=== PATIENT | female | born 1950 | race Caucasian/White ===

== ENCOUNTER → 2016-10-04 | Outpatient (CLI) | payer OTHER ==
--- NOTE | 2016-10-04 10:01 | BD ---
EXAMINATION TYPE: MG DEXA axial skeleton. DATE OF EXAM: 10/04/2016 9:17 AM COMPARISON: Prior DEXA bone scan September 04, 2014 CLINICAL HISTORY: Postmenopausal female with known osteopenia per order Height: 62.5 Weight: 141.2 FRAX RISK QUESTIONS: Alcohol (3 or more units per day): NO Family History (Parent hip fracture): NO Glucocorticoids (More than 3mos): NO (Ex: prednisone, prednisolone, methylprednisolone, dexamethasone, and hydrocortisone). History of Fracture in Adulthood: NO Secondary Osteoporosis: 1. Type 1 Diabetes: NO 2. Hyperthyroidism: NO 3. Menopause before 45: NO 4. Malnutrition: NO 5. Chronic liver disease: NO Rheumatoid Arthritis: NO Current Tobacco Use: NO RISK FACTORS HISTORY OF: Hip Fracture (Right/Left): NO Spine Fracture: NO History of Wrist Fracture: NO Surgery to Spine/Hip(right/left)/Wrist (right/left): NO Family History of Osteoporosis: YES Active: YES Diet low in dairy products/other sources of calcium: NO Postmenopausal woman: HYSTERECTOMY AGE 57 Lost more than 2 inches in height since high school: YES Frequent falls: NO Adrenal Insufficiency: NO MEDICATIONS: TOPOROL. LIPITOR Additional History: EXAM MEASUREMENTS: Bone mineral densitometry was performed using the [employer]ken[employer] System. Bone mineral density as measured about the Lumbar spine is: ----- L1-L4(G/cm2): 1.002 T Score Values are as follows: ----- L2: -1.8 ----- L3: -1.7 ----- L4: -0.4 ----- L1-L4: -1.5 Bone mineral density has: INCREASED 8.8 % since study of: 09.04.2014 Bone mineral density about the R hip (g/cm2): 0.790 Bone mineral density about the L hip (g/cm2): 0.759 T Score values are as follows: -----R Neck: -1.8 -----L Neck: -2.0 -----R Intertrochanter: -1.0 -----L Intertrochanter: -1.1 Bone mineral density has: INCREASED 0.8 % since study of: 09.04.2014 IMPRESSION: Osteopenia (T Score between -2.5 and -1 as noted by T score values remains present and low back and b oth hips. Bone density fairly stable from most recent prior. There is slightly increased risk of frac ture and the patient may be considered for treatment. Re-Screen 1-2 years. NOTE: T-SCORE=SD OF THE YOUNG ADULT MEAN.
== END | disposition home or self-care (01) ==
LOC: RADBDWWP 08:49
PROVIDERS: ATTEND Obstetrics & Gynecology
DX: M85.852 Other specified disorders of bone density and structure, left thigh (principal); M85.851 Other specified disorders of bone density and structure, right thigh; M85.88 Other specified disorders of bone density and structure, other site
CPT/HCPCS: 77080

== ENCOUNTER 2017-10-18 08:42 | Day surgery (SDC) | payer MEDICARE, OTHER ==
[2017-10-16 11:37] VITALS: BMI 24.7
[~2017-10-18 08:42] MED LIST: LACTATED RINGERS 1,000 ML IV SCH; LIDOCAINE 1% 20 ML VIAL (10MG/ML) FOR IV START INTRADERMA PRN
[2017-10-18 09:27] VITALS: RESP 16; TEMP 97.4
[2017-10-18] MEDS ORDERED: fentaNYL (PF) 50 MCG/ML 2 ML AMP ONE (09:57)
[2017-10-18] MEDS ORDERED: MIDAZOLAM 2 MG/2 ML VIAL ONE (09:57)
[2017-10-18] MEDS ORDERED: PROPOFOL 10 MG/ML 20 ML VIAL IV ONE (09:57)
--- NOTE | 2017-10-18 10:18 | P.PCN ---
Date of Procedure: 10/18/17 Procedure(s) Performed: Brief history: Patient is a pleasant 67-year-old white female, scheduled for an elective upper endoscopy as well as colonoscopy as a part of evaluation of lungs any history of GERD and screening for colorectal neoplasia Procedure performed: Esophagogastroduodenoscopy with biopsy Colonoscopy Preoperative diagnosis: GERD Screening for colon cancer Anesthesia: MAC Procedure: After informed consent was obtained from the patient was brought into the endoscopy unit and IV sedation was administered by anesthesia under continuous monitoring. Initially upper endoscopy was done. The Olympus GF 160 video endoscope was inserted inserted into the mouth and esophagus intubated without any difficulty and was gradually advanced into the stomach and duodenum and carefully examined. The bulb and second part of the duodenum appeared normal. The scope was then withdrawn into the stomach adequately insufflated with air and upon careful examination the antrum had mild gastritis and biopsies were done from this area. The body, cardia and fundus appeared normal. The scope was then withdrawn into the esophagus. The GE junction was located at 40 cm to the incisors. It appeared regular with no erythema erosions or ulcerations. Rest of the esophagus appeared normal. Patient tolerated the procedure well. At this time the patient continued to remain sedation. Initial digital rectal examination was normal. Olympus CF 160 video colonoscope was then inserted into the rectum and gradually advanced to the cecum without any difficulty. Careful examination was performed as the scope was gradually being withdrawn. The prep was excellent. The cecum, ascending colon, transverse colon, descending colon, sigmoid colon and rectum appeared normal. Retroflexion was performed in the rectum and no lesions were noted. Patient tolerated the procedure well. Impression: 1. Upper endoscopy revealed mild antral gastritis but no evidence of esophagitis or Mayorga's esophagus 2. Colonoscopy revealed normal-appearing colon from rectum to cecum with of colitis or colorectal neoplasia Recommendations: Findings of this examination were discussed with the patient as well as her family. She was advised to follow with the biopsy results. She will continue with ranitidine 150 mg twice daily and follow antireflux measures. She can have a repeat screening colonoscopy in 10 years
[2017-10-18 11:05] VITALS: BP 109/65; PULSE 60
== END 2017-10-18 11:14 | disposition home or self-care (01) ==
LOC: ORWHC2ENDO 08:42
PROVIDERS: ATTEND Internal Medicine Gastroenterology
DX: Z12.11 Encounter for screening for malignant neoplasm of colon (principal); K29.60 Other gastritis without bleeding; K21.9 Gastro-esophageal reflux disease without esophagitis; I10 Essential (primary) hypertension; Z79.82 Long term (current) use of aspirin; Z79.899 Other long term (current) drug therapy
CPT/HCPCS: 88305; 88342; 43239; J2250; J3010; J2704; G0121

== ENCOUNTER → 2018-05-03 | Outpatient (CLI) | payer MEDICARE ==
--- NOTE | 2018-05-10 17:10 | MM ---
Reason for exam: screening (asymptomatic). Last mammogram was performed 2 years and 3 months ago. History: Patient is postmenopausal. Family history of breast cancer in mother at age 79. Excisional biopsy of the left breast. MG 3D Screening Mammo W/Cad Bilateral CC and MLO view(s) were taken. Prior study comparison: January 29, 2016, bilateral MG screening mammo w CAD. January 12, 2015, bilateral MG screening mammo w CAD. January 10, 2014, bilateral digital screening mammo w/CAD. The breast tissue is almost entirely fat. Left global asymmetry upper outer quadrant stable. ASSESSMENT: Negative, BI-RAD 1 RECOMMENDATION: Routine screening mammogram of both breasts in 1 year.
== END | disposition home or self-care (01) ==
LOC: RADMAMWWP 16:17
PROVIDERS: ATTEND Family Medicine
DX: Z12.31 Encounter for screening mammogram for malignant neoplasm of breast (principal)
CPT/HCPCS: 77063; 77067

== ENCOUNTER → 2018-10-17 | Outpatient (CLI) | payer MEDICARE ==
--- NOTE | 2018-10-18 17:00 | BD ---
EXAMINATION TYPE: Axial Bone Density DATE OF EXAM: 10/17/2018 COMPARISON: 10/04/2016 CLINICAL HISTORY: Height: 62 IN Weight: 142 LBS RISK FACTORS HISTORY OF: Family History of Osteoporosis: YES MOTHER Active: YES Diet low in dairy products/other sources of calcium: YES Postmenopausal woman: AGE 57 Lost more than 2 inches in height since high school: YES 09/26" MEDICATIONS: Additional Medications: CALCIUM, VIT D, BLOOD PRESSURE MEDS, CHOLESTEROL MEDS;ZANTAC EXAM MEASUREMENTS: Bone mineral densitometry was performed using the Clerk System. Bone mineral density as measured about the Lumbar spine is: ----- L1-L4(G/cm2): 1.080 T Score Values are as follows: ----- L2: -0.8 ----- L3: -0.3 ----- L4: -0.4 ----- L1-L4: -0.8 Bone mineral density has: Increased 9.4% since study of: 10/04/2016 Bone mineral density about the R hip (g/cm2): 0.797 Bone mineral density about the L hip (g/cm2): 0.766 T Score values are as follows: -----R Neck: -1.7 -----L Neck: -2.0 -----R Total: -1.2 -----L Total: -1.3 Bone mineral density has: Increased 1.6% since study of: 10/04/2016 IMPRESSION: Osteopenia (T Score between -2.5 and -1). There is slightly increased risk of fracture and the patient may be considered for treatment. Re-Screen 2-5 years. NOTE: T-SCORE=SD OF THE YOUNG ADULT MEAN.
== END | disposition home or self-care (01) ==
LOC: RADBDWWP 16:22
PROVIDERS: ATTEND Family Medicine
DX: M85.80 Other specified disorders of bone density and structure, unspecified site (principal); N95.1 Menopausal and female climacteric states
CPT/HCPCS: 77080

== ENCOUNTER → 2019-04-02 | Outpatient (CLI) | payer MEDICARE ==
--- NOTE | 2019-04-03 07:52 | XR ---
EXAMINATION TYPE: XR Hip Complete RT DATE OF EXAM: 04/02/2019 COMPARISON: NONE HISTORY: Pain and TECHNIQUE: 2 views submitted FINDINGS: There is no evidence of erosive change or acute fracture. There is hypertrophic spurring involving the greater trochanter. Mild concentric narrowing the joint space. IMPRESSION: 1. No evidence of acute fracture or dislocation. 2. Spurring along the greater trochanter can be associated with trochanteric bursitis correlate with MRI as clinically warranted.
== END | disposition home or self-care (01) ==
LOC: RADXRMAIN 16:28
PROVIDERS: ATTEND Family Medicine
DX: M76.891 Other specified enthesopathies of right lower limb, excluding foot (principal)
CPT/HCPCS: 73502

== ENCOUNTER → 2019-07-08 | Outpatient (CLI) | payer MEDICARE ==
--- NOTE | 2019-07-09 14:44 | MM ---
Reason for exam: screening (asymptomatic). Last mammogram was performed 1 year and 2 months ago. History: Patient is postmenopausal. Family history of breast cancer in mother at age 79. Excisional biopsy of the left breast. Physical Findings: A clinical breast exam by your physician is recommended on an annual basis and results should be correlated with mammographic findings. MG 3D Screening Mammo W/Cad Bilateral CC and MLO view(s) were taken. Prior study comparison: May 03, 2018, bilateral MG 3d screening mammo w/cad. January 29, 2016, bilateral MG screening mammo w CAD. The breast tissue is almost entirely fat. No significant changes when compared with prior studies. ASSESSMENT: Benign, BI-RAD 2 RECOMMENDATION: Routine screening mammogram of both breasts in 1 year.
== END | disposition home or self-care (01) ==
LOC: RADMAMWWP 09:17
PROVIDERS: ATTEND Obstetrics & Gynecology
DX: Z12.31 Encounter for screening mammogram for malignant neoplasm of breast (principal)
CPT/HCPCS: 77063; 77067

== ENCOUNTER → 2019-10-18 | Outpatient (CLI) | payer MEDICARE ==
--- NOTE | 2019-10-18 12:17 | US ---
EXAMINATION TYPE: US venous doppler duplex LE DATE OF EXAM: 10/18/2019 12:06 PM COMPARISON: NONE CLINICAL HISTORY: R79.1 Abnormal coagulation profile. Elevated D dimer; recent chest pains per patien t; patient denies swelling SIDE PERFORMED: Bilateral TECHNIQUE: The lower extremity deep venous system is examined utilizing real time linear array sonog shad with graded compression, doppler sonography and color-flow sonography. VESSELS IMAGED: Common Femoral Vein Deep Femoral Vein Greater Saphenous Vein * Femoral Vein Popliteal Vein Small Saphenous Vein * Proximal Calf Veins (* superficial vessels) Right Leg: Negative for DVT Left Leg: Negative for DVT IMPRESSION: 1. Bilateral lower extremity ultrasound negative for deep venous thrombosis.
--- NOTE | 2019-10-18 13:04 | CT ---
CT CHEST FOR PULMONARY EMBOLISM. EXAMINATION TYPE: CT angio chest DATE OF EXAM: 10/18/2019 INDICATION: SOB, chest pain, elevated d-dimer CT DLP: 295.3 mGycm, Automated exposure control for dose reduction was used. CONTRAST: Patient injected with 60 mL of Isovue 370. COMPARISON: None TECHNIQUE: CT of the chest is performed on a spiral scan at 2 mm thick sections. Study is performed with intravenous contrast timed for evaluation for pulmonary embolism. This will limit additional po rtions of the evaluation. 3-D MIP images reconstructed by the technologist are reviewed on the compu ter in the coronal and sagittal planes. FINDINGS: No persistent filling defects are evident to suggest an acute pulmonary embolism. No mediastinal or hilar adenopathy enlarged by CT criteria is evident. The ascending aorta diameter at the level of the main pulmonary artery is 4.1 cm. The main pulmonary artery diameter at the bifur cation is 2.5 cm. Lung windows are clear. Limited CT section through the upper abdomen. There is calcification within the right superior renal cortex. Punctate calcification is in the left renal cortex. 0Small hiatal hernia may be present. IMPRESSIONS: 1. No acute pulmonary embolism. 2. Ascending thoracic aortic aneurysm.
== END | disposition home or self-care (01) ==
LOC: RADCTMAIN 11:16
PROVIDERS: ATTEND Family Medicine
DX: I71.2 Thoracic aortic aneurysm, without rupture (principal); R79.1 Abnormal coagulation profile
CPT/HCPCS: 82565; 84520; 93970; 71275; 36415; Q9967

== ENCOUNTER → 2019-10-30 | Outpatient (CLI) | payer MEDICARE ==
--- NOTE | 2019-10-30 12:03 | ECHOF ---
Referral Reason:R07.9 Chest pain R06.02 Shortness of breath MEASUREMENTS -------- HEIGHT: 157.5 cm WEIGHT: 64.4 kg BP: 147/76 RVIDd: 3.5 cm (< 3.3) IVSd: 1.1 cm (0.6 - 1.1) LVIDd: 3.5 cm (3.9 - 5.3) LVPWd: 1.1 cm (0.6 - 1.1) IVSs: 1.6 cm LVIDs: 1.7 cm LVPWs: 1.7 cm LAESV Index (A-L): 27.42 ml/m Ao Diam: 3.1 cm (2.0 - 3.7) AV Cusp: 2.0 cm (1.5 - 2.6) LA Diam: 3.0 cm (2.7 - 3.8) MV EXCURSION: 11.106 mm (> 18.000) MV EF SLOPE: 36 mm/s (70 - 150) EPSS: 0.2 cm MV E Sajan: 0.94 m/s MV DecT: 193 ms MV A Sajan: 0.99 m/s MV E/A Ratio: 0.95 RAP: 5.00 mmHg RVSP: 29.68 mmHg FINDINGS -------- Sinus rhythm. This was a technically adequate study. The left ventricular size is normal. There is borderline concentric left ventricular hypertrophy. Overall left ventricular systolic function is normal with, an EF between 55 - 60 %. The diastolic filling pattern is normal for the age of the patient 13.88. The right ventricle is mildly enlarged. Normal LA size by volume 22+/-6 ml/m2. The right atrium is mildly enlarged. Interatrial and interventricular septum intact. The aortic valve is trileaflet and appears structurally normal. There is mild aortic valve sclerosi s. There is no evidence of aortic regurgitation. There is no evidence of aortic stenosis. Mild mitral regurgitation is present. Mild tricuspid regurgitation present. There is no evidence of pulmonary hypertension. The right v entricular systolic pressure, as measured by Doppler, is 29.68mmHg. There is no pulmonic regurgitation present. The aortic root size is normal. IVC Not well visulized. There is no pericardial effusion. CONCLUSIONS -------- 1. Sinus rhythm. 2. This was a technically adequate study. 3. The left ventricular size is normal. 4. There is borderline concentric left ventricular hypertrophy. 5. Overall left ventricular systolic function is normal with, an EF between 55 - 60 %. 6. The diastolic filling pattern is normal for the age of the patient 13.88 7. The right ventricle is mildly enlarged. 8. Normal LA size by volume 22+/-6 ml/m2. 9. The right atrium is mildly enlarged. 10. Interatrial and interventricular septum intact. 11. The aortic valve is trileaflet and appears structurally normal. 12. There is mild aortic valve sclerosis. 13. There is no evidence of aortic regurgitation. 14. There is no evidence of aortic stenosis. 15. Mild mitral regurgitation is present. 16. Mild tricuspid regurgitation present. 17. There is no evidence of pulmonary hypertension. 18. The right ventricular systolic pressure, as measured by Doppler, is 29.68mmHg. 19. There is no pulmonic regurgitation present. 20. The aortic root size is normal. 21. IVC Not well visulized. 22. There is no pericardial effusion. CHANCERY CLERK: Tram Bose RDCS
--- NOTE | 2019-10-30 13:10 | ECHOS ---
STRESS ECHOCARDIOGRAM DATE OF SERVICE: 10/30/2019 INDICATIONS: Chest pain. MEDICATIONS: BASELINE HEART RATE: 66 BASELINE BLOOD PRESSURE: 147/76 MAXIMUM HEART RATE: 133 MAXIMUM BLOOD PRESSURE: 175/74 85% MPHR: 130 100% MPHR: 153 METS: 11.3 MAXIMUM STAGE REACHED: IV TOTAL EXERCISE TIME: 9 minutes 45 seconds CLINICAL INFORMATION: Baseline EKG revealed normal sinus rhythm without significant ST-T changes. Patient walked for 9 minutes 45 seconds achieved a maximal heart rate of 133 beats per minute which is 85% of predicted maximal. No angina. Rare PVCs. By EKG criteria, this is a negative stress test. However, right after the peak heart rate the rate dropped very quickly. She did not have any anginal symptoms. Technically a negative stress test by EKG criteria with borderline and equivocal EKG changes and no angina. Baseline echo images revealed normal wall motion and wall thickening of all segments. At peak exercise by the time images were obtained, heart rate was lower than 85%, but there is no evidence suggestive of ischemia. There is good augmentation of wall motion and wall thickening of all segments suggesting no evidence of stress-induced ischemia on this study. FINAL IMPRESSION: 1. Good exercise capacity. Negative stress test by EKG criteria with a quick drop in the heart rate after exercise. 2. Normal stress echocardiogram. MMODL / IJN: [id number] /
== END | disposition home or self-care (01) ==
LOC: RADNMMAIN 08:56
PROVIDERS: ATTEND Family Medicine
DX: I08.1 Rheumatic disorders of both mitral and tricuspid valves (principal)
CPT/HCPCS: 93306; 93351

== ENCOUNTER → 2020-04-22 | Outpatient (CLI) | payer MEDICARE ==
--- NOTE | 2020-04-22 18:06 | CT ---
EXAMINATION TYPE: CT angio chest DATE OF EXAM: 04/22/2020 5:26 PM COMPARISON: CTA chest 10/18/2019 HISTORY: f/u aneurysm CT DLP: 227.7 mGycm Automated exposure control for dose reduction was used. CONTRAST: CTA scan of the thorax is performed with IV Contrast, patient injected with 100 mL of Isovue 370, tho racic aortic aneurysm protocol. 3D reconstructed images are created on an independent workstation an d reviewed.. FINDINGS: LUNGS: The lungs are grossly clear, there is no concerning parenchymal mass or nodule identified. Mil d dependent atelectasis. There is no pleural effusion or pneumothorax seen. The tracheobronchial tr ee is patent. MEDIASTINUM: There is 4.0 cm ascending thoracic aortic aneurysm. No evidence of dissection. There is satisfactory enhancement of the pulmonary artery and its segmental, there is no CT evidence for centr al or segmental pulmonary embolism. There are no greater than 1 cm hilar or mediastinal lymph nodes. Cardiac size normal. No pericardial effusion is seen. OTHER: Renal cortical scarring and right renal cortical calcification seen. No adrenal nodule. Redem onstrated too small to characterize hypodense lesion of the right liver (4:44). Degenerative changes of the visualized spine. IMPRESSION: UNCHANGED 4.0 CM ASCENDING THORACIC AORTIC ANEURYSM
== END | disposition home or self-care (01) ==
LOC: RADCTMAIN 15:45
PROVIDERS: ATTEND Family Medicine
DX: I71.2 Thoracic aortic aneurysm, without rupture (principal); Z13.89 Encounter for screening for other disorder
CPT/HCPCS: 82565; 84520; 71275; 36415; Q9967

== ENCOUNTER → 2020-07-10 | Outpatient (CLI) | payer MEDICARE ==
--- NOTE | 2020-07-14 11:54 | MM ---
Reason for exam: screening (asymptomatic). Last mammogram was performed 1 year ago. History: Patient is postmenopausal. Family history of breast cancer in mother at age 79. Excisional biopsy of the left breast. Physical Findings: A clinical breast exam by your physician is recommended on an annual basis and results should be correlated with mammographic findings. MG 3D Screening Mammo W/Cad Bilateral CC and MLO view(s) were taken. Prior study comparison: July 08, 2019, bilateral MG 3d screening mammo w/cad. May 03, 2018, bilateral MG 3d screening mammo w/cad. There are scattered fibroglandular densities. Finding #1: There is a oval circumscribed lobulated mass in the left breast. Finding #2: There are typically benign calcifications in both breasts. No significant changes in finding since July 08, 2019 and May 03, 2018. ASSESSMENT: Benign, BI-RAD 2 RECOMMENDATION: Routine screening mammogram of both breasts in 1 year.
== END | disposition home or self-care (01) ==
LOC: RADMAMWWP 15:56
PROVIDERS: ATTEND Family Medicine
DX: Z12.31 Encounter for screening mammogram for malignant neoplasm of breast (principal); Z80.3 Family history of malignant neoplasm of breast
CPT/HCPCS: 77063; 77067

== ENCOUNTER → 2020-10-27 | Outpatient (CLI) | payer MEDICARE ==
--- NOTE | 2020-10-27 11:56 | ECHOF ---
Referral Reason:I71.2 Thoracic aortic aneurysm, without rupture MEASUREMENTS -------- HEIGHT: 157.5 cm WEIGHT: 63.5 kg BP: IVSd: 1.1 cm (0.6 - 1.1) LVIDd: 3.6 cm (3.9 - 5.3) LVPWd: 1.1 cm (0.6 - 1.1) IVSs: 1.4 cm LVIDs: 2.5 cm LVPWs: 1.0 cm LAESV Index (A-L): 24.16 ml/m Ao Diam: 3.3 cm (2.0 - 3.7) AV Cusp: 1.6 cm (1.5 - 2.6) MV EXCURSION: 13.189 mm (> 18.000) MV EF SLOPE: 30 mm/s (70 - 150) EPSS: 0.2 cm MV E Sajan: 0.38 m/s MV DecT: 254 ms MV A Sajan: 0.65 m/s MV E/A Ratio: 0.58 AV maxP.73 mmHg AV meanP.02 mmHg FINDINGS -------- Sinus rhythm. This was a technically good study. LV size, wall thickness and systolic function are normal, with an EF greater than 55%. The left ryan tricular size is normal. The right ventricle is normal in size. Normal LA size by volume 22+/-6 ml/m2. The right atrial size is normal. The aortic valve is trileaflet, and appears structurally normal. No aortic stenosis or regurgitation. Peak/mean gradient across the Aortic Valve is 6.73mmHg / 3.02mmHg. Mild mitral regurgitation is present. Mild tricuspid regurgitation present. Right ventricular systolic pressure is normal at < 35 mmHg. There is no pulmonic regurgitation present. The aortic root size is normal. There is no pericardial effusion. CONCLUSIONS -------- 1. LV size, wall thickness and systolic function are normal, with an EF greater than 55%. 2. The left ventricular size is normal. 3. The right ventricle is normal in size. 4. Normal LA size by volume 22+/-6 ml/m2. 5. The aortic valve is trileaflet, and appears structurally normal. No aortic stenosis or regurgitati on. 6. Peak/mean gradient across the Aortic Valve is 6.73mmHg / 3.02mmHg. 7. Mild mitral regurgitation is present. 8. Mild tricuspid regurgitation present. 9. The aortic root size is normal. 10. There is no pericardial effusion. INVENTORY REPRESENTATIVE: Madie Marcos RDCS
== END | disposition home or self-care (01) ==
LOC: RADECHMAIN 10:33
PROVIDERS: ATTEND Family Medicine
DX: I08.1 Rheumatic disorders of both mitral and tricuspid valves (principal)
CPT/HCPCS: 93306

== ENCOUNTER → 2020-11-20 | Outpatient (CLI) | payer MEDICARE ==
--- NOTE | 2020-11-20 21:38 | CT ---
EXAMINATION TYPE: CT angio chest DATE OF EXAM: 11/20/2020 4:49 PM COMPARISON: 04/22/2020. HISTORY: f/u aneurysm CT DLP: 264.1 mGycm Automated exposure control for dose reduction was used. CONTRAST: CTA scan of the thorax is performed with IV Contrast, patient injected with 80cc mL of Isovue 370. M IP and 3-D images are created and reviewed. FINDINGS: LUNGS: The lungs are grossly clear, there is no concerning parenchymal mass or nodule identified. T here is no pleural effusion or pneumothorax seen. The tracheobronchial tree is patent. MEDIASTINUM: There is moderate thoracic aorta atherosclerotic disease. There is stable 4 cm aneurysm of the ascending aorta. There is adequate opacification of the central/main pulmonary arteries withou t evidence of embolus. There are no greater than 1 cm hilar or mediastinal lymph nodes. No pericard ial effusion is seen. OTHER: No additional significant abnormality is seen. IMPRESSION: STABLE 4 CM ASCENDING AORTIC ANEURYSM. NO ACUTE ABNORMALITY.
== END | disposition home or self-care (01) ==
LOC: RADCTMAIN 15:35
PROVIDERS: ATTEND Family Medicine
DX: I71.2 Thoracic aortic aneurysm, without rupture (principal)
CPT/HCPCS: 82565; 84520; 71275; 36415; Q9967

== ENCOUNTER → 2021-07-27 | Outpatient (CLI) | payer MEDICARE ==
--- NOTE | 2021-07-29 14:07 | MM ---
Reason for exam: screening (asymptomatic). Last mammogram was performed 1 year and 1 month ago. History: Patient is postmenopausal. Family history of breast cancer in mother at age 79. Excisional biopsy of the left breast. Took hormonal contraceptives for 1 year. Physical Findings: A clinical breast exam by your physician is recommended on an annual basis and results should be correlated with mammographic findings. MG 3D Screening Mammo W/Cad Bilateral CC and MLO view(s) were taken. Prior study comparison: July 10, 2020, bilateral MG 3d screening mammo w/cad. July 08, 2019, bilateral MG 3d screening mammo w/cad. There are scattered fibroglandular densities. There is chronic nodularity in the left breast. No significant changes when compared with prior studies. ASSESSMENT: Benign, BI-RAD 2 RECOMMENDATION: Routine screening mammogram of both breasts in 1 year.
== END | disposition home or self-care (01) ==
LOC: RADMAMWWP 08:46
PROVIDERS: ATTEND Obstetrics & Gynecology
DX: Z12.31 Encounter for screening mammogram for malignant neoplasm of breast (principal); Z80.3 Family history of malignant neoplasm of breast
CPT/HCPCS: 77063; 77067

== ENCOUNTER → 2021-09-22 | Outpatient (CLI) | payer MEDICARE ==
--- NOTE | 2021-09-22 09:46 | BD ---
EXAMINATION TYPE: Axial Bone Density DATE OF EXAM: 09/22/2021 COMPARISON: NONE CLINICAL HISTORY: Height: 62 Weight: 146.2 FRAX RISK QUESTIONS: Alcohol (3 or more units per day): no Family History (Parent hip fracture): yes Glucocorticoids (More than 3mos): no (Ex: prednisone, prednisolone, methylprednisolone, dexamethasone, and hydrocortisone). History of Fracture in Adulthood: no Secondary Osteoporosis: 1. Type 1 Diabetes: no 2. Hyperthyroidism: no 3. Menopause before 45: no 4. Malnutrition: no 5. Chronic liver disease: no Rheumatoid Arthritis: no Current Tobacco Use: no RISK FACTORS HISTORY OF: Surgery to Spine/Hip(right/left)/Wrist (right/left): no Family History of Osteoporosis: yea Active: yes Diet low in dairy products/other sources of calcium: no Postmenopausal woman: yes Lost more than 2 inches in height since high school: yes MEDICATIONS: blood pressure, lipitor, water pill Additional History: EXAM MEASUREMENTS: Bone mineral densitometry was performed using the [employer] System. Bone mineral density as measured about the Lumbar spine is: ----- L1-L4(G/cm2): 1.106-0.7 T Score Values are as follows: ----- L2: -0.7 ----- L3:-0.4 ----- L4: 0.5 ----- L1-L4: -0.6 Bone mineral density has: increased 3.1 % since study 10.17.2018 Bone mineral density about the R hip (g/cm2): 0.770 Bone mineral density about the L hip (g/cm2): 0.693 T Score values are as follows: -----R Neck: -1.9 -----L Neck: -2.5 -----R Total: -1.5 -----L Total: -1.6 Bone mineral density has: decreased -4.3 % since study of: 10.17.2018 IMPRESSION: Osteoporosis (T Score less than -2.5). There is increased fracture risk and therapy is usually indicated based on age. Re-Screen 1-2 years. NOTE: T-SCORE=SD OF THE YOUNG ADULT MEAN.
== END | disposition home or self-care (01) ==
LOC: RADBDWWP 08:32
PROVIDERS: ATTEND Obstetrics & Gynecology
DX: Z12.31 Encounter for screening mammogram for malignant neoplasm of breast (principal); M85.88 Other specified disorders of bone density and structure, other site; M81.0 Age-related osteoporosis without current pathological fracture; Z80.3 Family history of malignant neoplasm of breast
CPT/HCPCS: 77080

== ENCOUNTER → 2021-11-11 | Outpatient (CLI) | payer MEDICARE ==
--- NOTE | 2021-11-11 12:07 | CT ---
EXAMINATION TYPE: CT angio chest DATE OF EXAM: 11/11/2021 9:24 AM COMPARISON: CT dated 11/20/2020 HISTORY: Thoracic aortic aneurysm CT DLP: 479.2 mGycm Automated exposure control for dose reduction was used. CONTRAST: CTA scan of the thorax is performed without and with IV Contrast, patient injected with 100 mL of Iso ethan 370, MIP and 3-D images were performed and reviewed. FINDINGS: Stable 4 mm ascending aortic aneurysm. No evidence for aortic dissection. Scattered arterial atherosc lerotic calcifications. No central pulmonary embolism. No gross cardiomegaly. Stable calcified medias tinal lymph nodes. Unchanged right apical pulmonary scarring/fibrosis. Stable 2 mm nodule at the lateral aspect of the l eft upper lobe. No new suspicious or progressive lung lesion. No pleural or pericardial effusion. Pat ent central airways. Stable right hepatic lobe segment 7 hypodensity, possibly representing a cyst. Right renal cortical defect with underlying calculus/calcification, stable. Multiple cortical defects are seen in the left kidney, probably representing sequela of previous infection/infarction, also ap preciated previously. Small sliding hiatal hernia. Dextroscoliosis of the thoracic spine with degener ative changes. No aggressive bone lesion. IMPRESSION: Stable 4 mm ascending aortic aneurysm. No evidence for aortic dissection. Other incidental findings a s described above.
== END | disposition home or self-care (01) ==
LOC: RADCTMAIN 08:01
PROVIDERS: ATTEND Family Medicine
DX: I71.2 Thoracic aortic aneurysm, without rupture (principal)
CPT/HCPCS: 82565; 84520; 71275; 36415; Q9967

== ENCOUNTER → 2022-07-28 | Outpatient (CLI) | payer MEDICARE ==
--- NOTE | 2022-07-29 08:13 | MM ---
Reason for Exam: Screening (asymptomatic). Last screening mammogram was performed 12 month(s) ago. Patient History: Menarche at age 16. First Full-Term at age 24. Hysterectomy at age 53. Postmenopausal. Patient has history of breast feeding. Patient used Hormonal Contraceptives for 1 year. Excisional Biopsy on the Left side. Mother had breast cancer, age 79. Risk Values: Sigrid 5 year model risk: 3.6%. NCI Lifetime model risk: 10.2%. Prior Study Comparison: 07/08/2019 Bilateral Screening Mammogram, [facility]. 07/10/2020 Bilateral Screening Mammogram, [facility]. 07/27/2021 Bilateral Screening Mammogram, [facility]. Tissue Density: The breast tissue is almost entirely fat. Findings: Analyzed By CAD. There is no suspicious group of microcalcifications or new suspicious mass in either breast. Overall Assessment: Negative, BI-RAD 1 Management: Screening Mammogram of both breasts in 1 year. A clinical breast exam by your physician is recommended on an annual basis and results should be correlated with mammographic findings. [facility] will attempt to contact patient to return for supplemental views and ultrasound if indicated. Electronically signed and approved by: Sekou Miranda DO
== END | disposition home or self-care (01) ==
LOC: RADMAMWWP 09:47
PROVIDERS: ATTEND Obstetrics & Gynecology
DX: Z12.31 Encounter for screening mammogram for malignant neoplasm of breast (principal); Z80.3 Family history of malignant neoplasm of breast; Z78.0 Asymptomatic menopausal state; Z98.890 Other specified postprocedural states
CPT/HCPCS: 77063; 77067

== ENCOUNTER → 2023-09-01 | Outpatient (CLI) | payer MEDICARE ==
--- NOTE | 2023-09-05 11:44 | MM ---
Reason for Exam: Screening (asymptomatic). Last mammogram was performed 1 year(s) and 1 month(s) ago. Patient History: Menarche at age 16. First Full-Term at age 24. Hysterectomy at age 53. Postmenopausal. Patient has history of breast feeding. Patient used Hormonal Contraceptives for 1 year. Excisional Biopsy on the Left side. Mother had breast cancer, age 79. Risk Values: Sigrid 5 year model risk: 3.6%. NCI Lifetime model risk: 9.7%. Prior Study Comparison: 07/10/2020 Bilateral Screening Mammogram, [facility]. 07/27/2021 Bilateral Screening Mammogram, [facility]. 07/28/2022 Bilateral MG 3D screening mammo w/cad, [facility]. Tissue Density: There are scattered fibroglandular densities. Findings: Analyzed By CAD. Pattern appears symmetrical and stable. A few benign punctate calcifications are scattered bilaterally No suspicious groups of microcalcifications, spiculated or lobular masses, architectural distortion or other secondary signs of malignancy are mammographically apparent. Overall Assessment: Benign, BI-RAD 2 Management: Screening Mammogram of both breasts in 1 year. A negative mammogram report should not preclude additional follow up of suspicious palpable abnormalities. Patient should continue monthly self breast exam. A clinical breast exam by your physician is recommended on an annual basis and results should be correlated with mammographic findings. Electronically signed and approved by: Valdo Loza D.O. Radiologis
== END | disposition home or self-care (01) ==
LOC: RADMAMWWP 15:39
PROVIDERS: ATTEND Family Medicine
DX: Z12.31 Encounter for screening mammogram for malignant neoplasm of breast (principal); Z78.0 Asymptomatic menopausal state; Z80.3 Family history of malignant neoplasm of breast; Z92.0 Personal history of contraception
CPT/HCPCS: 77063; 77067

== ENCOUNTER → 2023-11-09 | Outpatient (CLI) | payer MEDICARE ==
--- NOTE | 2023-11-09 13:06 | BD ---
EXAMINATION TYPE: Axial Bone Density DATE OF EXAM: 11/09/2023 CLINICAL HISTORY: 73 years old Female. ICD-10 CODE: M81.0 CC/ELECTRONIC ORDER/RLB Height: 62in Weight: 147lb FRAX RISK QUESTIONS: Family History (Parent hip fracture): yes Secondary Osteoporosis: RISK FACTORS HISTORY OF: MEDICATIONS: Osteoporosis Medications: Which medication: Raloxifene How Lon years EXAM MEASUREMENTS: Bone mineral densitometry was performed using the Tactile System. Bone mineral density as measured about the Lumbar spine is: ----- L1-L4(G/cm2): 1.093 T Score Values are as follows: ----- L1: -1.7 ----- L2: -0.5 ----- L3: -0.3 ----- L4: -0.4 ----- L1-L4: -0.7 Z Score Values are as follows: ----- L1: -0.1 ----- L2: 1.1 ----- L3: 1.3 ----- L4: 1.2 ----- L1-L4: 0.9 Bone mineral density has: Decreased -1.2% since study of: 09-22-21 Bone mineral density about the R hip (g/cm2): 0.813 Bone mineral density about the L hip (g/cm2): 0.772 T Score values are as follows: -----R Neck: -2.0 -----L Neck: -2.6 -----R Total: -1.5 -----L Total: -1.9 Z Score values are as follows: -----R Neck: -0.2 -----L Neck: -0.8 -----R Total: 0.0 -----L Total: -0.4 Bone mineral density has: Decreased -2.7% since study of: 09-22-21 FRAX%s: The graph provided illustrates a 26.1% chance for a major osteoporotic fx and a 11.6% chance for the hips probability for fx in 10 years time. IMPRESSION: Osteoporosis (T Score less than -2.5). There is increased fracture risk and therapy is usually indicated based on age. Re-Screen 1-2 years. NOTE: T-SCORE=SD OF THE YOUNG ADULT MEAN.
== END | disposition home or self-care (01) ==
LOC: RADBDWWP 08:42
PROVIDERS: ATTEND Family Medicine
DX: M81.0 Age-related osteoporosis without current pathological fracture (principal); M85.89 Other specified disorders of bone density and structure, multiple sites; Z78.0 Asymptomatic menopausal state
CPT/HCPCS: 77080

== ENCOUNTER → 2023-11-14 | Outpatient (CLI) | payer MEDICARE ==
[2023-11-14 14:03] LABS: African American GFR (CKD) 89 (>60 ml/min/1.73 sqM); Blood Urea Nitrogen 16 mg/dL (7-17); Non-African American GFR(CKD) 77 (>60 ml/min/1.73 sqM)
--- NOTE | 2023-11-17 10:56 | CT ---
EXAMINATION TYPE: CT angio chest CT DLP: 817 mGycm, Automated exposure control for dose reduction was used. 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 Unenhanced imaging through the chest followed by wi th IV Contrast, patient injected with 100 mL of Isovue 370, with multiplanar reformats. MIP images we re created on a separate workstation. FINDINGS: There is adequate contrast bolus and timing. PULMONARY ARTERIES: Slightly suboptimal bolus timing for the pulmonary arteries, nevertheless no fill ing defect is seen to suggest embolus. Pulmonary trunk is normal in size. Trunk measures 2.8 CM. HEART: Heart size upper normal.Mild to moderate coronary artery calcification and/or stents. No appr eciable pericardial effusion. AORTA: Mild atherosclerotic calcifications of the aorta and branches. Aortic root normal in size at 2.8 cm. Ascending aorta shows fusiform dilatation up to 3.8 cm, unchanged. The descending aorta is 2. 4 cm. No evidence of dissection or intramural hematoma. LOWER NECK: No significant findings. MEDIASTINUM: No gross evidence of adenopathy. Several calcified lymph nodes compatible with remote g ranulomatous disease. SOFT TISSUES/LYMPH NODES: Unremarkable soft tissues. No axillary adenopathy. LUNGS/ PLEURA: No evidence of acute infiltrate or consolidation. Mild chronic parenchymal changes mos tly in the right upper lobe are stable. No pneumothorax or pleural effusion. AIRWAY: Central airways are patent. There may be mild chronic bronchial wall thickening. MUSCULOSKELETAL: No acute osseous abnormality. Moderate disc degeneration changes are present through out the included thoracolumbar spine. Moderate apex right scoliosis. UPPER ABDOMEN: No significant findings. Tiny hiatal hernia. Stable 7 mm calcification in the lower po le left kidney, and 8 mm calcification in the upper pole right kidney underlying cortical defect, lik mary dystrophic calcifications of the cortices and remote insults. Mildly prominent extrarenal pelvis on the right. No hydronephrosis is evident. IMPRESSION: 1. Stable 3.8 cm fusiform aneurysm of the ascending thoracic aorta. 2. Otherwise stable exam. No acute chest process demonstrated.
== END | disposition home or self-care (01) ==
LOC: RADCTMAIN 13:21
PROVIDERS: ATTEND Family Medicine
DX: I71.21 Aneurysm of the ascending aorta, without rupture (principal); I71.40 Abdominal aortic aneurysm, without rupture, unspecified
CPT/HCPCS: 82565; 84520; 71275; 36415; Q9967

== ENCOUNTER → 2024-06-28 | Outpatient (CLI) | payer MEDICARE ==
--- NOTE | 2024-06-28 13:11 | CA ---
Stress Echo Report Gabi Nogueira Age: 74 Gender: F : 1950 Exam Date: 06/28/2024 10:09 Exam Location: [place] Stress Ht (in): 62 Wt (lb): 145 Ordering Physician: Melody Ornelas MD Referring Physician: Melody Ornelas MD Clinical Project Manager: HELADIO Technologist Procedure CPT: Indication: R07.9 CHEST PAIN, UNSPECIFIED ICD-9 Codes: Rhythm: Patient History: Cardiac Medications: SEE LIST Medications in past 24 hours: Contrast: N/A Stress Results Protocol: Obi Total dose(mL): NA Exercise Duration (min:sec): 7:[address] Depression (mm): Angina Score: Mederos Score: METS: 9.1 Resting HR: 83 Resting BP: 125 / 76 Peak HR: 138 Peak BP: 172 / 65 Max Predicted HR: 148 93 % Max Predicted HR Target HR: 126 Double Product: 16450 Stress Summary: BP Response: Reason for Termination: MAX EXERTION/TARGET HR Cardiac Symptoms: NO SYMPTOMS ECG Analysis Resting ECG: Normal sinus rhythm Stress ECG: No significant ST-T wave changes are diagnostic for ischemia by ST segment analysis Arrhythmia: Occasional PVCs noticed. No sustained arrhythmias noticed Echo Analysis Resting Echo: Normal global and segmental systolic function at rest. No resting regional wall motion abnormality Peak Echo Analysis: Normal augmentation of global and segmental systolic function with stress. No stress-induced regional wall motion abnormality MEASUREMENTS (Male/Female) Normal Values CONCLUSIONS Fair exercise tolerance for age achieving 9.1 METS Nonischemic ECG and echocardiographic response to treadmill exercise Normal hemodynamic and clinical response to treadmill exercise Overall normal treadmill echo stress test Dr Lakhwinder Freire (Electronically Signed) Final Date: 28 June 2024 13:10
== END | disposition home or self-care (01) ==
LOC: RADNMMAIN 09:47
PROVIDERS: ATTEND Family Medicine
DX: I49.3 Ventricular premature depolarization (principal)
CPT/HCPCS: 93351

== ENCOUNTER → 2024-09-12 | Outpatient (CLI) | payer MEDICARE ==
--- NOTE | 2024-09-16 18:26 | MM ---
Reason for Exam: Screening (asymptomatic). Last screening mammogram was performed 12 month(s) ago. Patient History: Menarche at age 16. First Full-Term at age 24. Hysterectomy at age 53. Postmenopausal. Patient has history of breast feeding. Patient used Hormonal Contraceptives for 1 year. Excisional Biopsy on the Left side. Mother had breast cancer, age 79. Risk Values: Sigrid 5 year model risk: 3.6%. NCI Lifetime model risk: 9.2%. Prior Study Comparison: 07/27/2021 Bilateral Screening Mammogram, [facility]. 07/28/2022 Bilateral MG 3D screening mammo w/cad, [facility]. 09/01/2023 Bilateral MG 3D screening mammo w/cad, [facility]. Tissue Density: The breasts are almost entirely fatty. Findings: Analyzed By CAD. Benign intramammary lymph node redemonstrated on the left. There is no suspicious group of microcalcifications or new suspicious mass in either breast. Overall Assessment: Benign, BI-RAD 2 Management: Screening Mammogram of both breasts in 1 year. See note below in regards to patient's increased 5 year Sigrid score. Patient should continue monthly self-breast exams. A clinical breast exam by your physician is recommended on an annual basis. This exam should not preclude additional follow-up of suspicious palpable abnormalities. Note on Sigrid scores and lifetime risk: 1. A Sigrid score greater than 3% is considered moderate risk. If this is the case, consider specialist referral to assess eligibility for a risk reducing agent. 2. If overall lifetime risk for the development of breast cancer is 20% or higher, the patient may qualify for future screening with alternating mammogram and breast MRI. [facility], , 09/16/2024 6:23 PM. Electronically signed and approved by: Jeanine Laguna M.D. Radiologist
== END | disposition home or self-care (01) ==
LOC: RADMAMWWP 12:58
PROVIDERS: ATTEND Family Medicine
DX: Z12.31 Encounter for screening mammogram for malignant neoplasm of breast (principal); Z78.0 Asymptomatic menopausal state; Z80.3 Family history of malignant neoplasm of breast; R92.313 Mammographic fatty tissue density, bilateral breasts
CPT/HCPCS: 77063; 77067

== ENCOUNTER → 2024-12-11 | Outpatient (CLI) | payer MEDICARE ==
--- NOTE | 2024-12-12 09:03 | CA ---
Transthoracic Echo Report Name: Gabi Nogueira Age: 74 Gender: F : 1950 Exam Date: 12/11/2024 15:05 Exam Location: [place] [facility] Ht (in): 62 Wt (lb): 145 Ordering Physician: Melody Ornelas MD Attending/Referring Phys: Equal Opportunity Representative Luisana Haney RDCS Procedure CPT: Indications: I71.21 ANEURYSM OF THE ASCENDING AORTA, WITHOUT RU Cardiac Hx: Technical Quality: Fair Contrast 1: Total Dose (mL): Contrast 2: Total Dose (mL): MEASUREMENTS (Male / Female) Normal Values 2D ECHO LVOT Diameter 1.9 cm LV Diastolic Volume MOD BP 63.5 cm??? 67 - 155 / 56 - 104 cm??? LV Systolic Volume MOD BP 22.7 cm??? 22 - 58 / 19 - 49 cm??? LV Ejection Fraction MOD BP 64.3 % >= 55 % LV Cardiac Index MOD BP 1502.6 cm???/min???m??? LV Diastolic Volume MOD 4C 63.4 cm??? LV Systolic Volume MOD 4C 23.4 cm??? LV Ejection Fraction MOD 4C 63.1 % LV Cardiac Index MOD 4C 1472.5 cm???/min???m??? LV Diastolic Length 4C 7.6 cm LV Systolic Length 4C 5.9 cm LV Diastolic Volume MOD 2C 60.7 cm??? LV Systolic Volume MOD 2C 22.1 cm??? LV Ejection Fraction MOD 2C 63.6 % LV Cardiac Index MOD 2C 1421.5 cm???/min???m??? LV Diastolic Length 2C 7.3 cm LV Systolic Length 2C 6.1 cm LA Volume 43.8 cm??? 18 - 58 / 22 - 52 cm??? LA Volume Index 25.6 cm???/m??? 16 - 28 cm???/m??? Ascending Aorta Diameter 4.2 cm DOPPLER AV Peak Velocity 138.8 cm/s AV Peak Gradient 7.7 mmHg AV Mean Velocity 97.2 cm/s AV Mean Gradient 4.1 mmHg AV Velocity Time Integral 30.3 cm LVOT Peak Velocity 109.0 cm/s LVOT Peak Gradient 4.8 mmHg LVOT Velocity Time Integral 22.9 cm LVOT Stroke Volume 66.1 cm??? LVOT Stroke Volume Index 39.6 ml/m??? LVOT Cardiac Index 2430.9 cm???/min???m??? AV Area Cont Eq vti 2.2 cm??? AV Area Cont Eq pk 2.3 cm??? MV Area PHT 3.0 cm??? Mitral E Point Velocity 50.7 cm/s Mitral A Point Velocity 80.8 cm/s Mitral E to A Ratio 0.6 MV Deceleration Time 251.4 ms PV Peak Velocity 87.8 cm/s PV Peak Gradient 3.1 mmHg FINDINGS Left Ventricle Left ventricular ejection fraction is estimated at 60 %. Left ventricular cavity size normal. No obvious regional wall motion abnormalities. Right Ventricle Normal right ventricular size and function. Unable to estimate the right ventricular systolic pressure. Right Atrium Normal right atrial size. Left Atrium Normal left atrial size. Mitral Valve Structurally normal mitral valve. No evidence for mitral valve prolapse. No mitral stenosis. Trace mitral regurgitation. Aortic Valve Trileaflet aortic valve. No aortic valve stenosis or regurgitation. Tricuspid Valve Structurally normal tricuspid valve. No tricuspid stenosis. Trace tricuspid regurgitation. Pulmonic Valve Structurally normal pulmonic valve. No pulmonic stenosis. No pulmonic regurgitation. Pericardium No pericardial effusion. Aorta Aortic annulus normal. Mildly dilated proximal ascending aorta. CONCLUSIONS Normal LV size and systolic function. Mild aortic valve sclerosis without restriction. Minimal mitral and tricuspid regurgitation. Prominent ascending aorta. This is better assessed by a CT angiogram. Previewed by: Dr. Myriam Leigh MD (Electronically Signed) Final Date: 12 December 2024 09:02
== END | disposition home or self-care (01) ==
LOC: RADECHMAIN 14:52
PROVIDERS: ATTEND Family Medicine
DX: I71.21 Aneurysm of the ascending aorta, without rupture (principal); I08.3 Combined rheumatic disorders of mitral, aortic and tricuspid valves
CPT/HCPCS: 93306